=== PATIENT | male | born 1935 | race Caucasian/White ===

== ENCOUNTER 2021-11-15 12:27 | Emergency (ER) | payer OTHER ==
[~2021-11-15 12:27] MED LIST: ALLERGY RELIEF10 M1 PO; ASPIR 8181 MG PO; ASPIRIN CHEWABL81 MG PO; CILOSTAZOL100 MG PO; FLOMAX0.4 MG PO; GINKGO BILOBA120 M1 PO; LIPITOR20 MG PO; MELATONIN5 M2 PO; PEPCID AC20 MG PO; PERCOCET 5-3251 EACH PO; POLY-IRON150 MG PO; TOPIRAMATE50 MG PO; TOPROL XL 25MG25 MG PO; TYLENOL WITH C1 EACH PO; VITAMIN D325 MC2 PO; ZESTRIL5 MG PO
[2021-11-15 14:17] LABS: BASOPHIL 0.1 % (0-2); EOSINOPHIL 0.7 % (0-7); HCT 34.1 % (42.0-52.0); HGB 11.7 g/dl (13.2-18.0); LYMPHOCYTE 8.5 % (15-48); MCH 32.3 pg (25.0-31.0); MCHC 34.3 g/dL (32.0-36.0); MCV 94.2 fL (78.0-100.0); MONOCYTE 11.4 % (0-12); MPV 9.7 fL (6.0-9.5); NEUTROPHIL 78.7 % (41-80); NRBC 0; PLT 175 K/uL (150-400); RBC 3.62 M/uL (4.70-6.00); RDW 12.3 % (11.5-14.0); WBC 10.5 K/uL (4.0-10.5)
[2021-11-15 14:45] LABS: ALBUMIN 3.3 g/dL (3.4-5.0); BILIRUBIN - TOTAL 0.8 mg/dL (0.2-1.0); BUN/CREAT RATIO (CALC) 16.2 RATIO; CREATININE 1.3 mg/dL (0.67-1.17); GLOBULIN (CALCULATION) 3.6 g/dL; POTASSIUM 3.6 mmol/L (3.5-5.1); TOTAL PROTEIN 6.9 g/dL (6.4-8.2)
[2021-11-15 14:55] LABS: LACTIC ACID 0.9 mmol/L (0.4-1.9)
[2021-11-15 15:37] LABS: BILIRUBIN 1+ mg/dL (NEGATIVE); BLOOD NEGATIVE Ery/uL (NEGATIVE); CLARITY HAZY (CLEAR); COLOR YELLOW (YELLOW); GLUCOSE (U) NORMAL (NORMAL); LEUKOCYTES NEGATIVE Leu/uL (NEGATIVE); NITRITE NEGATIVE (NEGATIVE); PROTEIN TRACE (LOW) mg/dL (NEGATIVE); SPECIFIC GRAVITY 1.025 (1.001-1.030)
[2021-11-15 15:52] LABS: BACTERIA 1+
[2021-11-15] MEDS ORDERED: AZITHROMYCIN250 MG PO (16:45)
== END 2021-11-15 17:01 | disposition home or self-care (01) ==
LOC: FER 12:27
PROVIDERS: Emergency Medicine
DX: J06.9 Acute upper respiratory infection, unspecified (principal); I10 Essential (primary) hypertension; Z20.822 Contact with and (suspected) exposure to COVID-19
CPT/HCPCS: 36415; 36600; 71045; 80053; 81001; 82553; 82803; 83605; 84145; 84484; 85025; 87040; 93005; J7030; U0002